=== PATIENT | female | born 1950 | race Hispanic/Latino ===

== ENCOUNTER 2017-11-04 10:29 | Observation (INO) | payer OTHER ==
[~2017-11-04] VITALS: Ht 154.9 cm; Wt 84.1 kg
[~2017-11-04 10:29] MED LIST: AMOXICILLIN500 MG PO; CIPRO500 MG OR; CLONIDINE0.1 MG PO; ENTERIC COATED325 MG PO; HYDROCHLOROT25 MG PO; NAPROSYN500 MG PO
--- NOTE | 2017-11-04 10:37 | NUR ---
WHEELCHAIR TO ER ROOM 12, TO BED.
--- NOTE | 2017-11-04 11:03 | NUR ---
PAIN IMPROVED, FAMILY AT BEDSIDE, WILL MEDICATE ORDERED.
[2017-11-04 11:10] LABS: HEMATOCRIT 41.5 % (37.0-47.0); HEMOGLOBIN 14.3 g/dl (12.0-16.0); IMMATURE GRANULOCYTES 0.3 % (0.0-1.0); MEAN CELL VOLUME 92.4 fL CALC (80.0-100.0); MEAN CORPUSCULAR HGB 31.8 pG CALC (26.0-32.0); MEAN CORPUSCULAR HGB CONC 34.5 g/L CALC (32.0-36.0); NEUT# 5.67 thou/uL (2.00-7.15); RED BLOOD COUNT 4.49 mill/uL (4.20-5.60); RED CELL DISTRI WIDTH 11.7 % (11.5-15.5)
[2017-11-04 11:17] LABS: ANION GAP 19 (6-22 (CALC)); BUN 13 mg/dL (8-23); BUN/CREATININE RATIO 20 (12-20 (CALC)); CARBON DIOXIDE 23 mmol/l (22-30); CHLORIDE 108 mmol/l (95-108); CREATININE 0.7 mg/dL (0.5-1.0); GFR > 60 ML/MIN (>=60 (CALC)); GFR FOR AFR.AMER. > 60 ML/MIN (>=60 (CALC)); POTASSIUM 4.3 mmol/l (3.5-5.1); SODIUM 145 mmol/l (137-146)
--- NOTE | 2017-11-04 11:59 | NUR ---
PT RESTING QUIETLY, ATTEMPTED REPORT, TAHIRA JOHNS UNABLE TO TAKE AT THIS TIME.
--- NOTE | 2017-11-04 12:10 | NUR ---
Admission Note Report Given to: TAHIRA JOHNS Transported by: X Wheelchair Stretcher Transported with: X Nurse Transporter X Patent IV O2 X Recycling Worker
--- NOTE | 2017-11-04 12:35 | NUR ---
PT ARRIVED FROM ER VIA STRETCHER ACCOMPANIED BY STAFF. IV SITE IS FREE FROM REDNESS OR EDEMA. TELE MONITOR. IN PLACE.
[2017-11-04 12:53] LABS: CHOLESTEROL HDL RATIO 5.2 (<4.4 (CALC))
--- NOTE | 2017-11-04 13:30 | NUR ---
MACKENZIE GTZ FROM PATIENT RECORDS. INTERPRET THE ADMISSION. IV SITE IS FREE FROM REDNESS OR EDEMA. TELE MONITOR IN PLACE. CONTINUE TO OBSERVE AND MONITOR, ASSESSMENT IS COMPLETED; BREATH SOUNDS ARE CLEAR,
[2017-11-04 14:00] VITALS: BP 163/84
[2017-11-04 15:16] VITALS: BP 125/76
--- NOTE | 2017-11-04 16:00 | NUR ---
PT IS RELAXING IN BED WITH NO DISTRESS NOTED. IV SITE IS FREE FROM REDNESS OR EDEMA. CONTINUE TO OBSERVE AND MONITOR.
--- NOTE | 2017-11-04 16:38 | NUR ---
PT DOES NOT SPEAK UKRAINIAN. Saw pt for med education rounds. Daughter present to translate. Pt expressed understanding and had no further questions at this time.
[2017-11-04 19:38] VITALS: BP 144/91
--- NOTE | 2017-11-04 19:45 | NUR ---
REPORT RECIEVED; PT RESTING IN BED. PT ENCOURAGED TO CALL FOR ASSISTANCE. SAFETY PRECAUTIONS REINFORCED. PT DENIES PAIN. TELE IN PLACE. FREQUENT ROUNDS MADE. CALL LIGHT WITHIN REACH.
--- NOTE | 2017-11-04 21:40 | NUR ---
PT WOKE FOR ASSESSMENT. Jalyn SEBASTIAN LPN TRANSLATED. RESP EVEN AND UNLABORED; NO DISCOMFORT NOTED. LUNGS CLEAR BILAT. TELE IN PALCE. ABD SOFT; ACTIVE BOWEL SOUNDS NOTED. PEDAL PULSES PALPATED BILAT. IV LFA PATENT; FLUSHED WITHOUT DIFFICULTY. SAFETY PRECAUTIONS REINFORCED. CALL LIGHT WITHIN REACH.
[2017-11-05 00:36] VITALS: BP 147/71
--- NOTE | 2017-11-05 00:44 | NUR ---
BLOOD DRAW COMPLETE; PT DENIES PAIN OR DISCOMFORT. TELE IN PLACE. CALL LIGHT WITHIN REACH.
[2017-11-05 04:13] VITALS: BP 147/79
--- NOTE | 2017-11-05 04:15 | NUR ---
RESP EVEN AND UNLABORED; NO DISTRESS NOTED. TELE IN PLACE. CALL LIGHT WITHIN REACH.
--- NOTE | 2017-11-05 07:30 | NUR ---
BEDSIDE REPORT RECEIVED FROM GRIFFIN HURST. PT SUPINE IN BED. SLEEPING. CALL LIGHT WITHIN REACH.
[2017-11-05 08:18] VITALS: BP 139/60
--- NOTE | 2017-11-05 08:30 | NUR ---
PT REPROTS SEVERE HEADACHE. DAVID HARRIS NOTIFIED. ORDER FOR ULTRAM PLACED. PT DENIES CHEST PAIN. NO SOB NOTED. ULTRAM ADMINISTERED WILL MONITOR FOR EFFECTIVENESS.
[2017-11-05 10:47] VITALS: BP 145/66
[2017-11-05] MEDS ORDERED: ZESTRIL10 M1 PO ×2 (11:39→12:32)
[2017-11-05] MEDS ORDERED: ZOLOFT25 MG PO ×2 (11:39→12:32)
[2017-11-05] MEDS ORDERED: MOBIC7.5 M1 PO (11:39)
[2017-11-05] MEDS ORDERED: FLEXERIL5 M1 PO (11:40)
[2017-11-05] MEDS ORDERED: LOPRESSOR50 M2 PO ×2 (11:40→12:32)
--- NOTE | 2017-11-05 11:41 | NUR ---
Medication reconciliation was done based on Pharmacy record of medications for the patient ([facility])
--- NOTE | 2017-11-05 12:23 | NUR ---
PT REPORTS RELIEF OF HEADACHE. REPORTS NAUSEA NOW. PT ATE 75% OF LUNCH.
[2017-11-05] MEDS ORDERED: ASPIRIN ADULT L81 M2 PO (12:32)
--- NOTE | 2017-11-05 13:23 | NUR ---
DR. SWARTZ IN TO SEE PT.
--- NOTE | 2017-11-05 15:04 | NUR ---
Discharge instructions given. Patient verbalizes understanding of same. Discharged in stable condition via Ambulatory to Home with family. All belongings sent with pt.
== END 2017-11-05 15:05 | disposition home or self-care (01) | DRG 305 ==
LOC: ED 10:29 → ED-I 11:29 → ED 11:49 → MS2 11:50
PROVIDERS: Family Medicine; Nurse Practitioner Family; ADMIT Internal Medicine; ATTEND Internal Medicine
DX: I16.0 Hypertensive urgency (principal); I10 Essential (primary) hypertension; G89.29 Other chronic pain; M54.2 Cervicalgia; Z91.14 Patient's other noncompliance with medication regimen
CPT/HCPCS: G0378

== ENCOUNTER 2019-08-01 19:38 | Emergency (ER) | payer SELFPAY ==
[~2019-08-01] VITALS: Ht 154.9 cm; Wt 90.6 kg
[~2019-08-01 19:38] MED LIST changes: +ASPIRIN ADULT L81 M2 PO; +FLEXERIL5 M1 PO; +LOPRESSOR50 M2 PO; +MOBIC7.5 M1 PO; +ZESTRIL10 M1 PO; +ZOLOFT25 MG PO
[2019-08-01 20:36] LABS: URINE BILIRUBIN - DIPSTICK NEGATIVE (NEGATIVE); URINE BLOOD DIPSTICK TRACE-INTACT (NEGATIVE); URINE COLOR YELLOW; URINE GLUCOSE - DIPSTICK NEGATIVE (NEGATIVE); URINE KETONE NEGATIVE (NEGATIVE); URINE LEUK ESTERASE TRACE (NEGATIVE); URINE NITRITE - DIPSTICK NEGATIVE (Negative); URINE PROTEIN - DIPSTICK NEGATIVE (NEG-TRACE); URINE SPECIFIC GRAVITY <=1.005
[2019-08-01] MEDS ORDERED: TAM75CAP PO (21:12)
[2019-08-01] MEDS ORDERED: TRAMADOL HYDROC50 MG PO (21:13)
[2019-08-01 21:30] VITALS: BP 148/88
== END 2019-08-01 21:32 | disposition home or self-care (01) | DRG 194 ==
LOC: EDBD 19:38 → ED 19:38
DX: J10.1 Influenza due to other identified influenza virus with other respiratory manifestations (principal); M48.56XA Collapsed vertebra, not elsewhere classified, lumbar region, initial encounter for fracture; I10 Essential (primary) hypertension